=== PATIENT | female | born 1985 | race Caucasian/White ===

== ENCOUNTER 2021-02-17 16:59 | Emergency (ER) | payer OTHER ==
[2021-02-17 17:09] VITALS: BP 111/73; PULSE 80; TEMP 98.6; BMI 29.2
[2021-02-17 18:17] LABS: EOS % 9.5 % (0-4.5); HEMATOCRIT 33.6 % (32.4-45.2); HEMOGLOBIN 10.8 GM/dL (10.7-15.3); LYMPH % 33.2 % (8-40); MCHC 32.3 g/dl (32.0-36.0); MEAN CELL VOLUME 80.5 fl (80-96); MEAN PLT VOLUME 8.1 fl (7.5-11.1); MONO % 7.1 % (3.8-10.2); NEUT % 49.2 % (42.8-82.8); PLATELET COUNT 367 K/MM3 (134-434); RBC 4.17 M/mm3 (3.60-5.2); WHITE BLOOD COUNT 8.3 K/mm3 (4.0-10.0)
[2021-02-17 18:24] LABS: INR 1.08 (0.83-1.09); PROTHROMBIN TIME (PATIENT) 13.2 SEC (9.7-13.0)
[2021-02-17 18:27] LABS: ACTIVATED PTT 29.3 SECONDS (25.2-36.5)
[2021-02-17 18:33] LABS: URINE APPEARANCE CLEAR; URINE BILIRUBIN NEGATIVE (NEGATIVE); URINE COLOR YELLOW; URINE GLUCOSE (UA) NEGATIVE (NEGATIVE); URINE KETONE NEGATIVE (NEGATIVE); URINE LEUK ESTERASE NEGATIVE (NEGATIVE); URINE NITRITE NEGATIVE (NEGATIVE); URINE PROTEIN NEGATIVE (NEGATIVE); URINE UROBILINOGEN 0.2 mg/dL (0.2-1.0)
[2021-02-17 18:40] LABS: CALCIUM 9.2 mg/dL (8.5-10.1)
[2021-02-17 18:41] LABS: ALBUMIN 3.9 g/dl (3.4-5.0); BLOOD UREA NITROGEN 7.3 mg/dL (7-18)
[2021-02-17 18:43] LABS: HCG,QUALITATIVE URINE Negative
[2021-02-17 18:44] LABS: CREATININE 0.6 mg/dL (0.55-1.3)
[2021-02-17 18:45] LABS: BILIRUBIN,TOTAL 0.3 mg/dL (0.2-1)
[2021-02-17 18:46] LABS: TOT PROT 7.4 g/dl (6.4-8.2)
[2021-02-17] MEDS ORDERED: ACETAMINOPHEN 325 MG TABLET (FP) PO ONE (18:52)
[2021-02-17] MEDS ORDERED: ACETAMINOPHEN 325 MG TABLET (FP) ONE (21:50)
== END 2021-02-18 00:24 | disposition home or self-care (01) ==
LOC: JER 16:59
DX: R10.31 Right lower quadrant pain (principal); N84.0 Polyp of corpus uteri
CPT/HCPCS: 74177-TC; 76830-TC; 80053; 81003; 84703; 85025; 85610; 85730; 86850; 86900; 86901; 93005; 93010; 99285-25; Q9967